=== PATIENT | male | born 1975 | race American Indian/Alaskan Native ===

== ENCOUNTER 2018-02-11 06:49 | Day surgery (SDC) | payer BC ==
[2018-02-08 12:26] VITALS: BMI 35.5
[2018-02-11] MEDS ORDERED: Lidocaine 2% Inj (20ml) ONE (07:07)
[2018-02-11] MEDS ORDERED: Midazolam 2 MG/2 ML VIAL ONE ×3 (07:08→09:11)
[2018-02-11 07:55] LABS: BASO # 0.04 K/mm3 (0.0-2.0); BASO % 0.5 % (0.0-3.0); EOS # 0.1 (0.0-0.7); EOS % 0.9 % (1.5-5.0); GRAN # 5.05 (1.4-6.5); GRAN % 67.7 % (50.0-68.0); HEMOGLOBIN 14.5 g/dL (14.0-18.0); LYMPH # 1.9 (1.2-3.4); LYMPH % 25.7 % (22.0-35.0); MEAN CORPUSCULAR HEMOGLOBIN 27.6 pg (25.0-35.0); MEAN PLATELET VOLUME 9.8 fl (7.0-11.0); MONO # 0.4 (0.1-0.6); MONO % 5.2 % (1.0-6.0); RBC 5.26 10^6/uL (3.5-6.1); RED CELL DISTRIBUTION WIDTH 14.3 % (11.5-14.5); WHITE BLOOD COUNT 7.5 10^3/ul (4.5-11.0)
[2018-02-11 08:06] LABS: BLOOD UREA NITROGEN 18 mg/dL (7-21); CALCIUM 9.8 mg/dL (8.4-10.5); GFR AFRICAN-AMERICAN > 60; GFR NON-AFRICAN AMERICAN 60; HDL CHOLESTEROL 55 mg/dL (29-60); INR 0.94 (0.93-1.08); PROTHROMBIN TIME 10.8 SECONDS (9.4-12.5)
[2018-02-11 08:17] LABS: LDL CHOLESTEROL 67 mg/dL (0-129)
[2018-02-11] MEDS ORDERED: Iodixanol 320 MG/ML 200 ML BOTTLE IV ONE (08:29)
[2018-02-11 09:43] VITALS: TEMP 98.4
[2018-02-11] MEDS ORDERED: Sodium Chloride 0.9% 1,000 ML IV SCH (09:45)
--- NOTE | 2018-02-11 11:27 | CARDCATH ---
PROCEDURE DATE: 02/11/2018 HISTORY: The patient is a 42-year-old male, who presents with exertional shortness of breath and chest pain. He was found to have a mild cardiomyopathy on stress test with multiple ischemic areas. Because of this, a cardiac catheterization was recommended. He suffers from hypertension and hypercholesterolemia. PROCEDURE: Left heart catheterization with coronary arteriography, left ventriculogram, supra-aortic valvular injection. The right femoral artery was cannulated with a 6-Tajik sheath. There were no complications. I performed moderate sedation, which included the presence of an independent trained observer that assisted in monitoring the patient's level of consciousness and physiologic status. After administration of Versed and fentanyl, my intra service time was 15 minutes. The findings on catheterization revealed a left ventricle that was mildly hypokinetic. Estimated ejection fraction is 50%. His coronary anatomy revealed a right dominant circulation. The RCA revealed intimal irregularities without significant stenoses. The left main artery was unremarkable. The LAD and diagonal vessels revealed intimal irregularities without significant stenoses. The circumflex artery and obtuse marginal branches were free of significant disease. Angio-Seal was used to close the femoral artery site. The patient tolerated the procedure well. In summary, the procedure revealed mild LV hypokinesis with an EF of approximately 50%. Coronary anatomy revealed intimal irregularities without critical lesions. Given these findings, it is likely his mild cardiomyopathy is due to longstanding hypertension. I have discussed with the patient about a cardiac risk reduction program including strict BP control as well as an aerobic exercise program. In addition, reducing his cholesterol levels would be important. Sanjay Quesada MD
[2018-02-11 12:49] VITALS: O2SAT 98
[2018-02-11 12:50] VITALS: RESP 16
[2018-02-11 14:05] VITALS: BP 103/56; PULSE 48
--- NOTE | 2018-02-11 19:19 | CARD ---
APPROVED REPORT EKG Measurement Heart [id number] <Conclusion> Sinus bradycardia Left axis deviation Septal infarct, age undetermined Abnormal ECG
== END 2018-02-11 15:30 | disposition home or self-care (01) ==
LOC: CATH 06:49
PROVIDERS: ATTEND Internal Medicine Cardiovascular Disease
DX: I25.5 Ischemic cardiomyopathy (principal); R07.9 Chest pain, unspecified; E78.00 Pure hypercholesterolemia, unspecified; I10 Essential (primary) hypertension; R06.02 Shortness of breath
CPT/HCPCS: 36415; 80048; 80061; 85025; 85610; 85730; 86850; 86900; 93005; 93458; 99152; C1760; C1769; C1887; C2629; J1644; J2250; J3010; J7040; Q9966